=== PATIENT | male | born 1990 | race Caucasian/White ===

== ENCOUNTER 2016-09-07 03:53 | Emergency (ER) | payer OTHER ==
[~2016-09-07] VITALS: Ht 175.3 cm; Wt 69.1 kg
[2016-09-07 03:57] VITALS: BP 143/106; PULSE 68; RESP 16; TEMP 98; O2SAT 100
[2016-09-07 04:06] VITALS: BP 143/106; PULSE 68; RESP 18; TEMP 98.8; O2SAT 100
[2016-09-07] MEDS ORDERED: BUPR1TAB74 PO (04:06)
[2016-09-07 04:37] VITALS: RESP 18; O2SAT 98
[2016-09-07 04:47] LABS: BLOOD, URINE NEG (NEG); GLUCOSE,URINE NEG (NEG); KETONE, URINE NEG (NEG); NITRITE,URINE NEG (NEG); PH, URINE 5.5 (5.0-8.5)
[2016-09-07 04:50] LABS: AUTOMATED NEUTROPHIL # 2.6 TH/MM3 (1.8-7.7); BASOPHIL # 0.1 TH/MM3 (0-0.2); EOSINOPHIL # 0.2 TH/MM3 (0-0.4); EOSINOPHIL % 2.5 % (0.0-4.0); HEMATOCRIT 47.3 % (39.0-51.0); HEMO FLAGS DIFF FINAL; LYMPH % 40.7 % (9.0-44.0); LYMPHOCYTE # 2.5 TH/MM3 (1.0-4.8); MEAN CORPUSCULAR HEMOGLOBIN 30.9 PG (27.0-34.0); MEAN CORPUSCULAR HGB CONC 33.2 % (32.0-36.0); MONO % 10.5 % (0.0-8.0); NEUT % 45.3 % (16.0-70.0); PLATELET COUNT 191 TH/MM3 (150-450); RED BLOOD COUNT 5.09 MIL/MM3 (4.50-5.90)
--- NOTE | 2016-09-07 04:57 | PD ---
HPI Chief Complaint: Abdominal Pain Time Seen by Provider: 04:55 Travel History International Travel<30 days: No Contact w/Intl Traveler<30days: No Traveled to known affect area: No History of Present Illness HPI The patient is a 26 year old male who complains of left lower quadrant pain for 2 days without any radiation of pain. There is no nausea, vomiting, diarrhea, dysuria, frequency or urgency. He denies any fever. He has no history of kidney stones. The pain is sharp and an 8/10. The pain comes in waves. He states he actually feels better when he stands up. PFSH Past Medical History Anxiety: Yes Depression: Yes Diminished Hearing: No Immunizations Current: Yes Tetanus Vaccination: Unknown Influenza Vaccination: Yes Social History Alcohol Use: No Tobacco Use: No Substance Use: No Allergies-Medications (Allergen,Severity, Reaction): Coded Allergies: No Known Allergies (Unverified , 09/07/16) Reported Meds & Prescriptions Reported Meds & Active Scripts Active Reported Bupropion HCl ER 12 HR (Bupropion HCl) 200 Mg Tab 200 Mg PO Q12HR Review of Systems Except as stated in HPI: all other systems reviewed are Neg Physical Exam Narrative GENERAL: Well-nourished, well-developed patient in moderate apparent distress with his left lower quadrant abdominal pain. His vital signs show blood pressure 143/106 but otherwise normal. SKIN: Warm and dry. No skin rashes seen. HEAD: Normocephalic. EYES: No scleral icterus. No injection or drainage. NECK: Supple, trachea midline. No JVD or lymphadenopathy. CARDIOVASCULAR: Regular rate and rhythm without murmurs, gallops, or rubs. RESPIRATORY: Breath sounds equal bilaterally. No accessory muscle use. GASTROINTESTINAL: Abdomen soft, with tenderness to direct palpation in the left lower quadrant, nondistended. No guarding or rebound is present. MUSCULOSKELETAL: No cyanosis, or edema. BACK: Nontender without obvious deformity. No CVA tenderness. Data Data Last Documented VS Vital Signs Date Time Temp Pulse Resp B/P Pulse Ox O2 Delivery O2 Flow Rate FiO2 09/07/16 05:08 64 18 143/89 100 Room Air 09/07/16 04:06 98.8 Orders Complete Blood Count With Diff (09/07/16 04:34) Comprehensive Metabolic Panel (09/07/16 04:34) Urinalysis - C+S If Indicated (09/07/16 04:34) Iv Access Insert/Monitor (09/07/16 04:34) Oximetry (09/07/16 04:34) Lipase (09/07/16 04:34) Ct Abd/Pel W/O Iv Contrast (09/07/16 04:57) Ketorolac Inj (Toradol Inj) (09/07/16 05:15) Labs Laboratory Tests Test 09/07/16 09/07/16 04:35 04:43 White Blood Count 6.0 TH/MM3 Red Blood Count 5.09 MIL/MM3 Hemoglobin 15.7 GM/DL Hematocrit 47.3 % Mean Corpuscular Volume 93.0 FL Mean Corpuscular Hemoglobin 30.9 PG Mean Corpuscular Hemoglobin 33.2 % Concent Red Cell Distribution Width 12.0 % Platelet Count 191 TH/MM3 Mean Platelet Volume 8.0 FL Neutrophils (%) (Auto) 45.3 % Lymphocytes (%) (Auto) 40.7 % Monocytes (%) (Auto) 10.5 % Eosinophils (%) (Auto) 2.5 % Basophils (%) (Auto) 1.0 % Neutrophils # (Auto) 2.6 TH/MM3 Lymphocytes # (Auto) 2.5 TH/MM3 Monocytes # (Auto) 0.6 TH/MM3 Eosinophils # (Auto) 0.2 TH/MM3 Basophils # (Auto) 0.1 TH/MM3 CBC Comment DIFF FINAL Differential Comment Sodium Level 141 MEQ/L Potassium Level 4.1 MEQ/L Chloride Level 105 MEQ/L Carbon Dioxide Level 29.6 MEQ/L Anion Gap 6 MEQ/L Blood Urea Nitrogen 13 MG/DL Creatinine 0.95 MG/DL Estimat Glomerular Filtration 95 ML/MIN Rate Random Glucose 102 MG/DL Calcium Level 8.3 MG/DL Total Bilirubin 0.3 MG/DL Aspartate Amino Transf 15 U/L (AST/SGOT) Alanine Aminotransferase 24 U/L (ALT/SGPT) Alkaline Phosphatase 58 U/L Total Protein 7.2 GM/DL Albumin 4.2 GM/DL Lipase 160 U/L Urine Collection Type VOIDED Urine Color YELLOW Urine Turbidity CLEAR Urine pH 5.5 Urine Specific [place] 1.024 Urine Protein NEG mg/dL Urine Glucose (UA) NEG mg/dL Urine Ketones NEG mg/dL Urine Occult Blood NEG Urine Nitrite NEG Urine Bilirubin NEG Urine Leukocyte Esterase NEG Urine WBC 0-2 /hpf Urine Squamous Epithelial 0-2 /hpf Cells Urine Mucus RARE /lpf Microscopic Urinalysis Comment CULT NOT INDICATED MDM Medical Decision Making Medical Screen Exam Complete: Yes Emergency Medical Condition: Yes Medical Record Reviewed: Yes Interpretation(s) The CBC is normal. The white count is only 6000. The CT abdomen/pelvis without IV contrast is normal. Except for a calcium of 8.3, the complete metabolic profile is normal. The lipase is normal. Urinalysis is normal and culture is not indicated. Differential Diagnosis Urinary stone, left-sided appendicitis, diverticulitis, colitis, urinary tract infection Narrative Course The patient has abdominal pain etiology undetermined. The lab work/imaging does not support any of the above findings. Diagnosis Primary Impression: Abdominal pain of unknown etiology Additional Instructions: Take the ibuprofen regularly, 1 tablet 3 times daily. Follow-up with your primary care physician this week. We will give you a 3 day work excuse. Med/Other Pt SpecificInfo: Prescription(s) given Scripts Ibuprofen 800 Mg [id number] Mg PO TID #45 TAB Ref 0 Prov:Craig Tierney MD 09/07/16 Disposition: DISCHARGE HOME Condition: Stable Craig Tierney MD Sep 07, 2016 04:57
[2016-09-07 05:03] LABS: CHLORIDE 105 MEQ/L (98-107); POTASSIUM 4.1 MEQ/L (3.5-5.1); SODIUM (NA) 141 MEQ/L (136-145)
[2016-09-07 05:03] LABS: COMMENT (UR) CULT NOT INDICATED; CULTURE IF INDICATED CULT NOT INDICATED; METHOD OF COLLECTION VOIDED; MUCUS URINE RARE /lpf (OCC); SQUAMOUS EPITHELIAL CELL URINE 0-2 /hpf (0-5); URINE COLOR YELLOW (YELLW/STRAW); WBC, URINE 0-2 /hpf (0-5)
[2016-09-07 05:07] LABS: ANION GAP 6 MEQ/L (5-15); BICARBONATE 29.6 MEQ/L (21.0-32.0); BLOOD UREA NITROGEN 13 MG/DL (7-18)
[2016-09-07 05:08] VITALS: BP 143/89; PULSE 64; RESP 18; O2SAT 100
[2016-09-07 05:10] LABS: ALT (GPT) 24 U/L (12-78); AST (GOT) 15 U/L (15-37); GLOMERULAR FILTRATION RATE 95 ML/MIN (>89)
[2016-09-07 05:11] LABS: TOTAL BILIRUBIN ADULT 0.3 MG/DL (0.2-1.0)
[2016-09-07 05:13] LABS: ALKALINE PHOSPHATASE 58 U/L (45-117)
[2016-09-07] MEDS ORDERED: KETOROLAC TROMETHAMINE 60 MG/2 ML (IM) VIAL IVP ONE (05:15)
--- NOTE | 2016-09-07 05:26 | RADHPO ---
EXAM DATE/TIME: 09/07/2016 05:08 [facility] COMPARISON: No previous studies available for comparison. INDICATIONS : Left lower quadrant pain x 2 days. ORAL CONTRAST: No oral contrast ingested. RADIATION DOSE: 7.06 CTDIvol (mGy) MEDICAL HISTORY : None SURGICAL HISTORY : Umbilical hernia repair. ENCOUNTER: Initial ACUITY: 2 days PAIN SCALE: 8/10 LOCATION: Left lower quadrant TECHNIQUE: Volumetric scanning of the abdomen and pelvis was performed. Using automated exposure control and ad justment of the mA and/or kV according to patient size, radiation dose was kept as low as reasonably achievable to obtain optimal diagnostic quality images. FINDINGS: LOWER LUNGS: The visualized lower lungs are clear. LIVER: Homogeneous density without lesion. There is no dilation of the biliary tree. No calcified gallston es. SPLEEN: Normal size without lesion. PANCREAS: Within normal limits. KIDNEYS: Normal in size and shape. There is no mass, stone, or hydronephrosis. ADRENAL GLANDS: Within normal limits. VASCULAR: There is no aortic aneurysm. BOWEL/MESENTERY: The stomach, small bowel, and colon demonstrate no acute abnormality. There is no free intraperitone al air or fluid. ABDOMINAL WALL: Within normal limits. RETROPERITONEUM: There is no lymphadenopathy. BLADDER: No wall thickening or mass. REPRODUCTIVE: Within normal limits. INGUINAL: There is no lymphadenopathy or hernia. MUSCULOSKELETAL: Within normal limits for patient age. CONCLUSION: Normal examination. Jass Shah MD on September 07, 2016 at 5:22 Board Certified Radiologist. This report was verified electronically.
[2016-09-07] MEDS ORDERED: IBUP800T23 PO (05:39)
== END 2016-09-07 05:50 | disposition home or self-care (01) ==
LOC: PHED 03:53
DX: R10.32 Left lower quadrant pain (principal)
CPT/HCPCS: 74176; 80053; 81001; 83690; 85025; 96374; 99284; J1885

== ENCOUNTER 2017-04-06 08:30 | Emergency (ER) | payer OTHER ==
[~2017-04-06] VITALS: Ht 175.3 cm; Wt 72.0 kg
[~2017-04-06 08:30] MED LIST: BUPR1TAB74 PO; IBUP800T23 PO
[2017-04-06 08:32] VITALS: BP 134/71; PULSE 75; RESP 16; TEMP 98.8; O2SAT 98
--- NOTE | 2017-04-06 09:13 | PD ---
HPI Chief Complaint: Headache Time Seen by Provider: 09:03 Travel History International Travel<30 days: No Contact w/Intl Traveler<30days: No Traveled to known affect area: No History of Present Illness HPI states that last thursday, while playing with his child they inadvertently hit the corner of his eye (like a headbutt type of hit) and per pt since then has had dizziness, nausea, and headaches when he didn't used to have such symptoms before, per pt he didnot get checked out back then. PFSH Past Medical History Anxiety: Yes Depression: Yes Diminished Hearing: No Immunizations Current: Yes Social History Alcohol Use: No Tobacco Use: No Substance Use: No Allergies-Medications (Allergen,Severity, Reaction): Coded Allergies: No Known Allergies (Unverified , 04/06/17) Reported Meds & Prescriptions Reported Meds & Active Scripts Active Reported Bupropion HCl ER 12 HR (Bupropion HCl) 200 Mg Tab 200 Mg PO Q12HR Review of Systems HENT: Positive: Headaches, Vertigo Physical Exam Narrative GENERAL: SKIN: Warm and dry. HEAD: Atraumatic. Normocephalic. EYES: Pupils equal and round. No scleral icterus. No injection or drainage. ENT: No nasal bleeding or discharge. Mucous membranes pink and moist. NECK: Trachea midline. No JVD. CARDIOVASCULAR: Regular rate and rhythm. RESPIRATORY: No accessory muscle use. Clear to auscultation. Breath sounds equal bilaterally. GASTROINTESTINAL: Abdomen soft, non-tender, nondistended. MUSCULOSKELETAL: Extremities without clubbing, cyanosis, or edema. No obvious deformities. NEUROLOGICAL: Awake and alert. No obvious cranial nerve deficits. Motor grossly within normal limits. Five out of 5 muscle strength in the arms and legs. Normal speech. PSYCHIATRIC: Appropriate mood and affect; insight and judgment normal. Data Data Last Documented VS Vital Signs Date Time Temp Pulse Resp B/P (MAP) Pulse Ox O2 Delivery O2 Flow Rate FiO2 04/06/17 10:03 76 18 115/64 (81) 99 Room Air 04/06/17 08:[address] Brain W/O Iv Contrast(Rout) (04/06/17 09:08) Meclizine (Antivert) (04/06/17 09:15) MDM Medical Decision Making Medical Screen Exam Complete: Yes Emergency Medical Condition: Yes Medical Record Reviewed: Yes Differential Diagnosis ich v concussion v postconcussive syndrome Narrative Course ct did not show any ich or any other bony deformity. patient will be d/c home Diagnosis Primary Impression: Post concussion syndrome Scripts Pslpcgxaij-Itudnllbvmeza-Xxqzqqyk (Fioricet) 50-300-40 Mg Cap 1-2 CAP PO Q6H Y for HEADACHE, #28 CAP 0 Refills Prov: Mirza Fernandez MD 04/06/17 Ondansetron Odt (Zofran Odt) 4 Mg Tab 4 MG SL Q6HR Y for Nausea/Vomiting, #30 TAB 0 Refills Prov: Mirza Fernandez MD 04/06/17 Disposition: 01 DISCHARGE HOME Condition: Stable Mirza Fernandez MD Apr 06, 2017 09:13
[2017-04-06] MEDS ORDERED: MECLIZINE HCL 25 MG TAB PO ONE (09:15)
--- NOTE | 2017-04-06 09:51 | RADRPT ---
EXAM DATE/TIME: 04/06/2017 09:41 [facility] COMPARISON: No previous studies available for comparison. INDICATIONS : Headache, dizziness and blurred vision since hitting head six days ago. RADIATION DOSE: 62.04 CTDIvol (mGy) MEDICAL HISTORY : None SURGICAL HISTORY : None. ENCOUNTER: Initial ACUITY: 4 - 6 days PAIN SCALE: 6/10 LOCATION: cranial TECHNIQUE: Multiple contiguous axial images were obtained of the head. Using automated exposure control and adj ustment of the mA and/or kV according to patient size, radiation dose was kept as low as reasonably a chievable to obtain optimal diagnostic quality images. DICOM format image data is available electro nically for review and comparison. FINDINGS: CEREBRUM: The ventricles are normal for age. No evidence of midline shift, mass lesion, hemorrhage or acute in farction. No extra-axial fluid collections are seen. POSTERIOR FOSSA: The cerebellum and brainstem are intact. The 4th ventricle is midline. The cerebellopontine angle i s unremarkable. EXTRACRANIAL: The visualized portion of the orbits is intact. SKULL: The calvaria is intact. No evidence of skull fracture. CONCLUSION: Normal examination. Jass Shah MD on April 06, 2017 at 9:49 Board Certified Radiologist. This report was verified electronically.
[2017-04-06 10:03] VITALS: BP 115/64; PULSE 76; RESP 18; O2SAT 99
[2017-04-06] MEDS ORDERED: BUTA1CAP PO (10:06)
[2017-04-06] MEDS ORDERED: ZOFR4TAB3 SL (10:06)
== END 2017-04-06 10:14 | disposition home or self-care (01) ==
LOC: PHEFT 08:30
DX: F07.81 Postconcussional syndrome (principal); G44.309 Post-traumatic headache, unspecified, not intractable; R11.0 Nausea; R42 Dizziness and giddiness; Z86.59 Personal history of other mental and behavioral disorders
CPT/HCPCS: 70450; 99284

== ENCOUNTER 2017-09-13 11:41 | Emergency (ER) | payer OTHER ==
[~2017-09-13] VITALS: Ht 175.3 cm; Wt 79.0 kg
[~2017-09-13 11:41] MED LIST changes: +BUTA1CAP PO; -IBUP800T23 PO; +ZOFR4TAB3 SL
[2017-09-13 11:42] VITALS: BP 137/92; PULSE 88; RESP 18; TEMP 98.9; O2SAT 97
--- NOTE | 2017-09-13 12:07 | PD ---
HPI Chief Complaint: Suicide Ideation/Attempt Time Seen by Provider: 12:04 Travel History International Travel<30 days: No Contact w/Intl Traveler<30days: No Traveled to known affect area: No History of Present Illness HPI Patient presents for suicide ideation for approximately one week. Specific plan to overdose. Reports a history of depression and anxiety. Family history of bipolar disorder in his sister and father. Currently on Depakote Wellbutrin and fluoxetine. Followed by psych at the [facility]. Accompanied by his mother. Patient is here voluntarily. PFSH Past Medical History Anxiety: Yes Depression: Yes Diminished Hearing: No Immunizations Current: Yes ?: Not Social History Alcohol Use: No Tobacco Use: No Substance Use: No Allergies-Medications (Allergen,Severity, Reaction): Coded Allergies: No Known Allergies (Unverified Adverse Reaction, Unknown, 09/13/17) Reported Meds & Prescriptions Reported Meds & Active Scripts Active Fioricet (Napjouvdpz-Kmhmtfiqgzyjx-Paqimbzm) 50-300-40 Mg Cap 1-2 Cap PO Q6H PRN Zofran Odt (Ondansetron Odt) 4 Mg Tab 4 Mg SL Q6HR PRN Reported Fluoxetine (Fluoxetine HCl) 40 Mg Cap 40 Cap PO DAILY Bupropion HCl ER (Bupropion HCl) 200 Mg Tablet.er 250 Mg PO BID Depakote ER (Divalproex Sodium) 500 Mg Shanna 500 Mg PO HS Bupropion HCl ER 12 HR (Bupropion HCl) 200 Mg Tab 200 Mg PO Q12HR Review of Systems General / Constitutional: No: Fever Eyes: No: Visual changes HENT: No: Headaches Cardiovascular: No: Chest Pain or Discomfort Respiratory: No: Shortness of Breath Gastrointestinal: No: Abdominal Pain Genitourinary: No: Dysuria Musculoskeletal: No: Pain Skin: No Rash Neurologic: No: Weakness Psychiatric: No: Depression Endocrine: No: Polydipsia Hematologic/Lymphatic: No: Easy Bruising Physical Exam Narrative GENERAL: Well-nourished, well-developed patient. SKIN: Focused skin assessment warm/dry. HEAD: Normocephalic. EYES: No scleral icterus. No injection or drainage. NECK: Supple, trachea midline. No JVD or lymphadenopathy. CARDIOVASCULAR: Regular rate and rhythm without murmurs, gallops, or rubs. RESPIRATORY: Breath sounds equal bilaterally. No accessory muscle use. GASTROINTESTINAL: Abdomen soft, non-tender, nondistended. MUSCULOSKELETAL: No cyanosis, or edema. BACK: Nontender without obvious deformity. No CVA tenderness. Data Data Last Documented VS Vital Signs Date Time Temp Pulse Resp B/P (MAP) Pulse Ox O2 Delivery O2 Flow Rate FiO2 09/13/17 11:42 98.9 88 18 137/92 (107) 97 Orders Orders Complete Blood Count With Diff (09/13/17 11:52) Basic Metabolic Panel (Bmp) (09/13/17 11:52) Urinalysis - C+S If Indicated (09/13/17 11:52) Drug Screen, Random Urine (09/13/17 11:52) Alcohol (Ethanol) (09/13/17 11:52) Psych Screen (09/13/17 14:04) Labs Laboratory Tests Test 09/13/17 12:15 09/13/17 14:00 White Blood Count 7.0 TH/MM3 Red Blood Count 5.21 MIL/MM3 Hemoglobin 16.1 GM/DL Hematocrit 48.9 % Mean Corpuscular Volume 93.9 FL Mean Corpuscular Hemoglobin 30.9 PG Mean Corpuscular Hemoglobin Concent 32.9 % Red Cell Distribution Width 12.5 % Platelet Count 189 TH/MM3 Mean Platelet Volume 8.1 FL Neutrophils (%) (Auto) 70.1 % Lymphocytes (%) (Auto) 17.9 % Monocytes (%) (Auto) 9.1 % Eosinophils (%) (Auto) 0.5 % Basophils (%) (Auto) 2.4 % Neutrophils # (Auto) 5.0 TH/MM3 Lymphocytes # (Auto) 1.2 TH/MM3 Monocytes # (Auto) 0.6 TH/MM3 Eosinophils # (Auto) 0.0 TH/MM3 Basophils # (Auto) 0.2 TH/MM3 CBC Comment DIFF FINAL Differential Comment Urine Collection Type CLEAN CATCH Urine Color YELLOW Urine Turbidity CLEAR Urine pH 6.0 Urine Specific [place] 1.025 Urine Protein NEG mg/dL Urine Glucose (UA) NEG mg/dL Urine Ketones NEG mg/dL Urine Occult Blood NEG Urine Nitrite NEG Urine Bilirubin NEG Urine Urobilinogen 0.2 MG/DL Urine Leukocyte Esterase NEG Urine Squamous Epithelial Cells 0-5 /hpf Urine Amorphous Sediment FEW Microscopic Urinalysis Comment CULT NOT INDICATED Urine Collection Time 1215 MDM Medical Decision Making Medical Screen Exam Complete: Yes Emergency Medical Condition: Yes Differential Diagnosis Suicide ideation, uncontrolled depression or anxiety, bipolar disorder Narrative Course Assessment and plan discussed with patient and mother at bedside. Like to avoid [place] acting him since he is voluntarily here. Like to avoid a sitter since his mother is in the room as well. Plan to medically clear and transfer to [facility]. Clinically cleared, healthy young man. BMP and urine drug screen pending, difficulty in the lab. Diagnosis Primary Impression: Suicidal ideation Patient Instructions: General Instructions Med/Other Pt SpecificInfo: No Meds Exist/No RX given Condition: Sanjay Velazquez MD Sep 13, 2017 12:07
[2017-09-13] MEDS ORDERED: BUPR200T22 PO (12:24)
[2017-09-13] MEDS ORDERED: FLUO40CA PO (12:24)
[2017-09-13] MEDS ORDERED: DEPA500T3 PO (12:24)
[2017-09-13 12:36] LABS: BASOPHIL # 0.2 TH/MM3 (0-0.2); BASOPHIL % 2.4 % (0.0-2.0); EOSINOPHIL % 0.5 % (0.0-4.0); HEMATOCRIT 48.9 % (39.0-51.0); HEMOGLOBIN 16.1 GM/DL (13.0-17.0); LYMPH % 17.9 % (9.0-44.0); LYMPHOCYTE # 1.2 TH/MM3 (1.0-4.8); MEAN CELL VOLUME 93.9 FL (80.0-100.0); MEAN CORPUSCULAR HEMOGLOBIN 30.9 PG (27.0-34.0); MEAN CORPUSCULAR HGB CONC 32.9 % (32.0-36.0); MEAN PLATELET VOLUME 8.1 FL (7.0-11.0); MONO % 9.1 % (0.0-8.0); MONOCYTE # 0.6 TH/MM3 (0-0.9); NEUT % 70.1 % (16.0-70.0); PLATELET COUNT 189 TH/MM3 (150-450); RED BLOOD COUNT 5.21 MIL/MM3 (4.50-5.90); RED CELL DISTRIBUTION WIDTH 12.5 % (11.6-17.2)
[2017-09-13 12:38] LABS: BILIRUBIN, URINE NEG (NEG); BLOOD, URINE NEG (NEG); GLUCOSE,URINE NEG (NEG); KETONE, URINE NEG (NEG); NITRITE,URINE NEG (NEG); URINE COLOR YELLOW (YELLW/STRAW); URINE LEUKOCYTE ESTERASE NEG (NEG)
[2017-09-13 12:47] LABS: AMORPHOUS SEDIMENT, URINE FEW; SQUAMOUS EPITHELIAL CELL URINE 0-5 /hpf (0-5)
[2017-09-13 14:18] LABS: CHLORIDE 105 MEQ/L (98-107); SODIUM (NA) 139 MEQ/L (136-145)
[2017-09-13 14:21] LABS: BICARBONATE 25.9 MEQ/L (21.0-32.0); CALCIUM 8.6 MG/DL (8.5-10.1); GLUCOSE,RANDOM 91 MG/DL (74-106)
[2017-09-13 14:22] LABS: BLOOD UREA NITROGEN 12 MG/DL (7-18)
[2017-09-13 14:25] LABS: CREATININE 0.94 MG/DL (0.60-1.30); GLOMERULAR FILTRATION RATE 96 ML/MIN (>89)
== END 2017-09-13 19:40 | disposition left against medical advice (07) ==
LOC: PHED 11:41 → NED 19:40
DX: R45.851 Suicidal ideations (principal); F32.9 Major depressive disorder, single episode, unspecified; F41.9 Anxiety disorder, unspecified; Z79.899 Other long term (current) drug therapy
CPT/HCPCS: 80048; 80307; 81001; 85025; 99283